=== PATIENT | male | born 1945 | race Caucasian/White ===

== ENCOUNTER → 2016-10-07 | Outpatient (CLI) | payer OTHER ==
[~2016-10-07] MED LIST: ACIPHEX20 MG PO; CELEBREX200 MG PO; CIALIS5 MG PO; CYCLOBENZAPRINE10 MG PO; FLONASE AL50 MCG/ACT; METHADONE HCL10 MG PO; NAPROXEN250 MG PO
--- NOTE | 2016-10-07 18:10 | DIAGNOSTIC IMAGING REPORT ---
PROCEDURE: MR BRAIN W/WO CONTRAST INDICATION: BILATERAL SENSORY HEARING LOSS TECHNIQUE: Noncontrast T1 sagittal and T2 coronal images. T2, FLAIR, gradient, and diffusion axial images of the brain. Thin-cut T1 axial of the IACs were obtained with 3D reformations. Following 17 mL of intravenous gadolinium (ProHance) thin-cut T1 axial, and FAT-SAT T1 axial and coronal images were obtained of the IACs followed by FAT-SAT T1 axial images of the brain. COMPARISON: None. FINDINGS: Mild cortical atrophy and a few scattered hyperintense lesions of the deep and subcortical white matter on FLAIR sequence. Normal ventricular system. Normal CP angles and internal auditory canals without evidence of a mass or abnormal enhancement. Normal posterior fossa. Minimal fluid in the left mastoid. Sinuses are clear. IMPRESSION: 1. Normal CP angles and internal auditory canals 2. Mild atrophy and white matter chronic ischemic changes 3. Minimal fluid in the left mastoid.
== END ==
LOC: MRI SRH 08:20
DX: H90.3 Sensorineural hearing loss, bilateral (principal); R42 Dizziness and giddiness; H93.13 Tinnitus, bilateral

== ENCOUNTER 2016-11-15 14:47 | Outpatient (CLI) | payer OTHER ==
--- NOTE | 2016-11-15 16:40 | DIAGNOSTIC IMAGING REPORT ---
PROCEDURE: MR LTD LOWER EXT JOINT-RIGHT INDICATION: OA RT KNEE (PEPPER AND NEPHEW PROTOCOL) Pepper and Nephew protocol for preop knee replacement. TECHNIQUE: Limited MRI of the knee was performed with high-resolution PD sagittal images. In addition, AP radiographs of the lower extremity were obtained with scanogram markers. Diagnostic interpretation is not provided. IMPRESSION: 1. Preoperative Pepper and Nephew protocol for knee prosthesis.
== END 2016-11-15 23:00 ==
LOC: MRI SRH 14:47
DX: M17.11 Unilateral primary osteoarthritis, right knee (principal)

== ENCOUNTER 2016-11-15 15:21 | Outpatient (CLI) | payer OTHER | END 2016-11-15 23:00 | LOC: LAB SRH 15:21 | DX: M17.11 Unilateral primary osteoarthritis, right knee (principal) | CPT/HCPCS: 91672; 92132 ==

== ENCOUNTER 2017-01-05 10:14 | Outpatient (CLI) | payer OTHER ==
--- NOTE | 2017-01-05 12:36 | DIAGNOSTIC IMAGING REPORT ---
PROCEDURE: US BILATERAL CAROTID DOPPLER INDICATION: TRANSIENT CEREBRAL ISCHEMIA TECHNIQUE: Color Doppler duplex imaging of the carotid and vertebral vessels. COMPARISON: None. FINDINGS: Right carotid system: No significant stenosis visualized. The waveforms are normal. There is intimal thickening. Left carotid system: No significant stenosis visualized. The waveforms are normal. There is intimal thickening. Vertebral System: Antegrade vertebral artery flow bilaterally. Right common carotid artery peak systolic velocity 79 cm/second. Right internal carotid artery peak systolic velocity 62 cm/second. Right external carotid artery peak systolic velocity 96 cm/second. Right dfzyscyh-go-npangu carotid artery ratio 0.78 Right vertebral artery peak systolic velocity 40 cm/second. Left common carotid artery peak systolic velocity 54 cm/second. Left internal carotid artery peak systolic velocity 55 cm/second. Left external carotid artery peak systolic velocity 97 cm/second. Left aujiddlg-cv-lhzznh carotid artery ratio 1.02 Left vertebral artery peak systolic velocity 43 cm/second. IMPRESSION: 1. No hemodynamically significant stenosis in either carotid system. 2. Antegrade vertebral artery flow bilaterally. Velocity criteria are extrapolated from diameter data as defined by the Society of Radiologists in Ultrasound Consensus Conference, Radiology 2003; 229; 340-346.
--- NOTE | 2017-01-05 12:36 | DIAGNOSTIC IMAGING REPORT ---
PROCEDURE: US BILATERAL CAROTID DOPPLER INDICATION: TRANSIENT CEREBRAL ISCHEMIA TECHNIQUE: Color Doppler duplex imaging of the carotid and vertebral vessels. COMPARISON: None. FINDINGS: Right carotid system: No significant stenosis visualized. The waveforms are normal. There is intimal thickening. Left carotid system: No significant stenosis visualized. The waveforms are normal. There is intimal thickening. Vertebral System: Antegrade vertebral artery flow bilaterally. Right common carotid artery peak systolic velocity 79 cm/second. Right internal carotid artery peak systolic velocity 62 cm/second. Right external carotid artery peak systolic velocity 96 cm/second. Right tufhrrnl-yj-wiilzs carotid artery ratio 0.78 Right vertebral artery peak systolic velocity 40 cm/second. Left common carotid artery peak systolic velocity 54 cm/second. Left internal carotid artery peak systolic velocity 55 cm/second. Left external carotid artery peak systolic velocity 97 cm/second. Left eeoesgtk-ke-hlrmjq carotid artery ratio 1.02 Left vertebral artery peak systolic velocity 43 cm/second. IMPRESSION: 1. No hemodynamically significant stenosis in either carotid system. 2. Antegrade vertebral artery flow bilaterally. Velocity criteria are extrapolated from diameter data as defined by the Society of Radiologists in Ultrasound Consensus Conference, Radiology 2003; 229; 340-346.
== END 2017-01-05 23:00 ==
LOC: US SRH 10:14
DX: G45.9 Transient cerebral ischemic attack, unspecified (principal)

== ENCOUNTER 2017-01-12 09:01 | Outpatient (CLI) | payer OTHER ==
--- NOTE | 2017-01-12 10:41 | DIAGNOSTIC IMAGING REPORT ---
PROCEDURE: XR CHEST 2 VIEW INDICATION: PRE OP TECHNIQUE: PA and lateral views. COMPARISON: None. FINDINGS: Lungs are clear. Heart and mediastinum are normal. Thorax is normal. IMPRESSION: 1. Negative chest.
== END 2017-01-12 23:00 ==
LOC: RT SRH 09:01
DX: Z01.810 Encounter for preprocedural cardiovascular examination (principal); Z01.812 Encounter for preprocedural laboratory examination; Z01.818 Encounter for other preprocedural examination; I44.4 Left anterior fascicular block; R94.31 Abnormal electrocardiogram [ECG] [EKG]
CPT/HCPCS: 90001; 90004; 90074; 90100; 90155; 91004; 91286; 94001; 94060; 95059; 95150

== ENCOUNTER 2017-01-17 07:30 | Inpatient (IN) | payer OTHER ==
[~2017-01-17] VITALS: Ht 170.2 cm; Wt 82.1 kg
[2017-01-24] VITALS (9 sets, daily range): BP systolic 118–127; BP diastolic 66–79
--- NOTE | 2017-01-24 06:58 | NUR ---
PREOP INSTRUCTIONS GIVEN TO PATIENT. QUESTIONS ANSWERED. PATIENT VERBALIZES UNDERSTANDING. CONSENT CONFIRMED. EXTREMITY MARKED. KP WOLFE AND STONEY ON. BS 129. PATIENT RESTING COMFORTABLY. KB
--- NOTE | 2017-01-24 09:49 | Postoperative Progress Note ---
Postop Progress Note Preoperate Diagnosis: Right knee arthritis Postoperative Diagnosis: Same Surgeon: Mario Pena MD Anesthesia: General ETT Findings: Arthritis right knee Procedure: Right TKA Complications? No Condition: Stable EBL: 500cc Fluid(s): 800cc Blood Administered: 0 Specimen(s) removed? Yes Specimen removed/disposition: Bone and tissue right knee Grafts or Implants? Yes Graft/Implant type: Right TKA . (See nursing notes for details of grafts/implants)
--- NOTE | 2017-01-24 10:09 | NUR ---
REC'D FROM OR; SPONT RESP. SUPINE WITH ICE TO RT KNEE. CMS=GOOD; DP&PT=STRONG, PALP.
--- NOTE | 2017-01-24 10:29 | NUR ---
SURGEON HERE TO SPEAK TO PT RE FINDINGS. XRAYS TAKEN; TOLERATED WELL. TALKATIVE
--- NOTE | 2017-01-24 11:00 | OPERATIVE REPORT ---
DATE OF SURGERY: 01/24/2017 SURGEON: MARGOT REYES MD MODEL MAKER FIBERGLASS: STEPHANIE SPENCER PA-C PREOPERATIVE DIAGNOSIS: 1. Arthritis of the right knee POSTOPERATIVE DIAGNOSIS: 1. Arthritis of the right knee. PROCEDURE PERFORMED: 1. The operation proposed was right knee replacement, and the operation performed was the same ESTIMATED BLOOD LOSS: 500 mL. COMPLICATIONS: None. PATHOLOGY SPECIMEN: Bone and tissue removed from the right knee, including the meniscus, anterior cruciate ligament, the infrapatellar fat pad, and the cut surfaces of the femur, tibia, and patella. SURGICAL FINDINGS: Right knee arthritis. SURGICAL TECHNIQUE: The patient was taken to the operating room, where he was given a general anesthetic. A tourniquet applied to the right thigh. The leg was prepped and draped in the usual sterile fashion. A longitudinal incision was made directly anteriorly. Standard medial parapatellar approach to the knee was performed, and the patient had excision of the anterior fat pad and a major portion of the anterior cruciate ligament, which was later completely resected. We exposed the distal femur enough to place the supplied guide block from the Pepper and Nephew set. This was pinned in place, and the distal femoral cut was made. The #6 cutting block was then placed on the distal femur and secured in place with 2 pins. Then the anterior and posterior and chamfer cuts were made, and a small cut for the femoral sulcus as well. The patient had a subluxation of the tibia forward, and we were able to resect the remaining portion of the anterior cruciate ligament and the menisci, exposed the proximal tibia. Then the tibial cutting block was placed into position, pinned in place, and the guide lobo used to ensure that we really were aligned properly. Then the proximal tibial cut was made without difficulty, and the proximal tibial segment was removed. The patient had the tibial base plate secured in place with 2 pins, and then drill hole for the stem and the cutout for the fins was made with the special drill and punch from the Pepper & Nephew set. The femoral trial was placed into position. The #9 insert was placed on the tibia and then moved through the range of motion. I could see the patella tracked perfectly, and the patient was going to have good stability in full extension, full flexion easily possible. There was a little bit of laxity with the 9 insert, and we later went to an actual 10 insert when we finished, but it was possible to see that everything was going to be well. So we cut the patella, resecting 9-10 mm of bone off the articular surface. Using a 35 mm guide, positioned it superiorly and slightly medially, and then made the drill holes and undercut them with a small curette. The leg was then exsanguinated, the tourniquet inflated to 350 mmHg. The knee was bent, and the cut surfaces of the femur and tibia were cleansed with a pulse lavage unit and dried thoroughly. Methylmethacrylate cement was vacuum mixed, injected down the canal of the tibia, and on the cut surface of the tibia, placed on the backside of the tibial component, and it was seated down into position. The extruded cement was removed from around the margins. More cement was placed on the backside of the femoral component and on the femoral cut surface. It was seated in place. Again, the extruded cement was removed from around the margins. A 9 mm trial insert was placed into position. The knee was put in extension and held there until the cement hardened, but before we did, we cleaned the patellar cut surface and dried it thoroughly. We then placed methylmethacrylate cement in the holes for the lugs on the patellar component and on the backside of the patellar component, and on the cut surface of the patella. We then seated the patellar component in place, clamped it in place with a clamp, and removed the extruded cement from around the margins and waited for the cement to harden. Once it did, we could see again there was a little bit of laxity, varus and valgus with the 9 mm insert. We went with a 10 mm trial insert, and with that he had excellent stability, full range of motion. The patellar tracking was perfect, with no tendency to sublux or dislocate. We got the actual 10 mm insert, seated it down on the tibial base plate, and then closed using running #2 nonabsorbable braided suture for the parapatellar retinaculum, and then interrupted dlmoaa-ks-nmmpf sutures along the medial margin of the patella to reinforce the repair. We then deflated the tourniquet and further closed using 2-0 Vicryl running suture for the subcutaneous, and 3-0 Vicryl running suture for the subcuticular skin closure. We dressed with Xeroform and ABDs, wrapped with sterile Webril, Emir bandage, and awakened and taken to the recovery room. He did get an injection of 40 mL of 0.5 % Marcaine around the knee prior to the closure. He was in stable condition and was comfortable when he arrived in the emergency room.
--- NOTE | 2017-01-24 11:01 | DIAGNOSTIC IMAGING REPORT ---
PROCEDURE: XR KNEE 1 OR 2 VIEWS - RIGHT INDICATION: post op TKA TECHNIQUE: Two views of the right knee. COMPARISON: None. FINDINGS: Total knee arthroplasty components are in position. The joint is in normal alignment. No unexpected fractures or hardware failure. There is expected intra-articular fluid, gas, and subcutaneous postoperative changes. IMPRESSION: 1. Expected postoperative appearance of right total knee arthroplasty.
--- NOTE | 2017-01-24 15:29 | NUR ---
I discussed with the patient their current medications, possible side effects, and answered questions.
--- NOTE | 2017-01-24 15:44 | NUR ---
PATIENT SITTING UP IN THE BED ALERT AND ORIENTED. DENIES ANY NUMBNESS OR TINGLING TO THE RIGHT LOWER EXTREMITY. PATIENT DENIES ANY CHEST PAIN, DENIES ANY SOB, ON THE CO2 MACHINE, CO2 AT 31, SATURATION AT 94 PERCENT ON ROOM AIR. STRONG PULSES BILAT LE. KP HOSE ON, SCDS ON, RLE WRAPPED IN AN NAYELI BANDAGE, CLEAN DRY AND INTACT.
[2017-01-25] VITALS (8 sets, daily range): BP systolic 120–146; BP diastolic 59–77
--- NOTE | 2017-01-25 00:46 | NUR ---
PATIENT ON ROOM AIR STILL, SATURATIONS IN THE HIGH 90'S WITH CO2 IN THE MID 30'S TO 40. MINIMAL PAIN, RLE ELEVATED AND ICED. GOOD CAP REFILL, SENSATION AT BASELINE. PATIENT HAS NO COMPLAINTS AT THIS TIME. VOIDING FREQUENTLY. DENIES NAUSEA OR VOMITTING, SOB OR CP. TOLERATING PO WELL. CALL LIGHT WITHIN REACH.
--- NOTE | 2017-01-25 07:04 | Progress Note ---
Subjective General VSS WBC 12.4 Hgb 11.4 Calcium 8.2 NMV unchanged in RLE. 2+ DP pulse. Toes warm and pink. No C/O no CP, SOB, N,V,D. PT today. He was hypotensive last pm, but his BP is OK and his HR likewise this am.
--- NOTE | 2017-01-25 10:07 | NUR ---
PER JOSE PHARMACIST, CANCEL CIPRO ORDER AND INSTRUCT PATIENT TO CONTINUE HER PREVIOUS RX OF CLINDAMYCIN QID, PHARMACIST DISCUSSED THIS WITH PATIENT, PATIENT TO CONTINUE TAKING THIS UNTIL FOLLOW UP WITH DR. JAIN FOR FURTHER INSTRUCTIONS. PHARMACIST ALSO EDUCATED PATIENT ON TAKING WITH PROBIOTIC.
--- NOTE | 2017-01-25 18:54 | NUR ---
I discussed with the patient their current medications, possible side effects, and answered questions.
--- NOTE | 2017-01-25 20:04 | NUR ---
WAS TOLD PT HAD HOME MEDICATIONS IN HIS ROOM. MEDICATIONS WERE REMOVED AND PLACED AT NURSES STATION. LABOR REPRESENTATIVE HAS MEDICATIONS NOW. PT IN NO DISTRESS, HAS BEEN UP WALKING AROUND, PT HAS HAD NO OTHER COMPLAINTS. PT IS IN A HAPPY MOOD, AND RESTING IN HER ROOM NOW.
--- NOTE | 2017-01-25 22:56 | NUR ---
Patient sat out during daytime and has been using the IS now and again. He has mindi having PRN pain meds and was also given a fresh ice pack. Dressing on R knee appers dry and intact.
[2017-01-26 03:02] VITALS: BP 133/85
[2017-01-26 07:06] VITALS: BP 118/83
--- NOTE | 2017-01-26 07:39 | Progress Note ---
Subjective General He had quite a bit of pain last night. but is much better this am. No other c/o. VSS Afeb He is doing well and will continue with PT
[2017-01-26] MEDS ORDERED: ACIPHEX20 MG PO (08:50)
[2017-01-26 10:33] VITALS: BP 118/79
--- NOTE | 2017-01-26 10:49 | Provider's Discharge Care Plan ---
Problem, Goal, Plan Problem List 1. Primary osteoarthritis of knees, bilateral
--- NOTE | 2017-01-26 10:49 | Provider's Discharge Care Plan ---
Problem, Goal, Plan Problem List 1. Primary osteoarthritis of knees, bilateral
--- NOTE | 2017-01-26 11:57 | NUR ---
pt completed STS using FWW SBA. Ambulated to w/c. pushed to stairs. pt negotiated 10steps SBA using both railings. pt ambulated 100ft back to room SBA using a FWW. pt is recommended to d/c home once medically cleared.
--- NOTE | 2017-01-26 14:40 | NUR ---
DSICHARGE INSTRUCS., PRESC., GIVEN TO PT. EMPHASIZING ON AMBULATION, ASPIRIN PER DR REYES'S INSTRUCS., BID. PT UNDERSTOOD. QUESTIONS AND CONCERNS ANSWERED. PT IS WAITING FOR HIS GRANDSON.
--- NOTE | 2017-01-26 15:00 | NUR ---
PT WENT HOME WITH GRANDSON. ASSISTED BY MS ROWLAND TO THE LOBBY VIA WHEELCHAIR.
== END 2017-01-26 14:40 | disposition home or self-care (01) | DRG 470 ==
LOC: U SRH 07:30 → SCU SRH 01-24 06:19 → U SRH 01-24 07:30 → ACUTE2 SRH 01-24 10:36
PROVIDERS: ADMIT Orthopaedic Surgery
PROC: 0SRC0J9 Replacement of Right Knee Joint with Synthetic Substitute, Cemented, Open Approach (ICD-10-PCS; principal; 2017-01-24 07:30)
DX: M17.11 Unilateral primary osteoarthritis, right knee (principal); R03.1 Nonspecific low blood-pressure reading; J44.9 Chronic obstructive pulmonary disease, unspecified; J84.10 Pulmonary fibrosis, unspecified; K21.9 Gastro-esophageal reflux disease without esophagitis; M48.06 Spinal stenosis, lumbar region; N40.0 Benign prostatic hyperplasia without lower urinary tract symptoms; Z86.73 Personal history of transient ischemic attack (TIA), and cerebral infarction without residual deficits; Z79.891 Long term (current) use of opiate analgesic; Z87.891 Personal history of nicotine dependence

== ENCOUNTER 2017-02-05 13:31 | Inpatient (IN) | payer OTHER ==
[~2017-02-05] VITALS: Ht 170.2 cm; Wt 83.0 kg
--- NOTE | 2017-02-05 13:48 | ED CLINICAL REPORT ---
Clinical Report - Physicians/Mid Levels [facility] [address] [place] [address] 02/05/2017 13:32 [id number] Time Seen: 13:37. Arrived- By private vehicle. Historian- patient. HISTORY OF PRESENT ILLNESS Chief Complaint: LOWER EXTREMITY PAIN and SWELLING and ; ;(discharge from wound). Modifying factors- worsened by standing, walking and movement. Relieved by remaining still. Severity is described as being moderate. The quality is noted to be "pain" and similar to prior episodes. No radiation. This started today and is still present. It was gradual in onset and has been waxing/waning. Symptoms located in the area of the right knee. The patient has had redness and swelling. He has had difficulty walking. No bladder dysfunction, bowel dysfunction, sensory loss or motor loss. Patient notes an injury. Mechanism of injury- (post operative right knee replacement). Similar symptoms previously: Recent medical care: The patient was seen recently at this facility. Diagnosis: (had right knee replacement this week). REVIEW OF SYSTEMS No cough, chest pain, fever, headache or blurred vision. No sore throat, abdominal pain, vomiting, diarrhea or black stools. No bloody stools. He has had neck pain. It has been similar to previous episodes. He has had back pain. It has been similar to previous symptoms. PAST HISTORY ( Past medical history: Low back pain Chronic right knee pain / DJD Chronic neck pain with cervical radiculitis SURGERIES: Right knee replacement Lumbar spine surgery Shoulder repair Hernia repair Tonsillectomy). No history of heart disease. SOCIAL HISTORY Former smoker, end date 1989. Is a local resident. ADDITIONAL NOTES The nursing notes have been reviewed. PHYSICAL EXAM Vital Signs: 02/05/2017 13:39 BP: 135/72. HR: 103. RR: 20. O2 saturation: 95%. Temp: 98.3 F. Pain level now: 3/10. Appearance: Alert. Oriented X3. Patient in mild distress. Eyes: Eyes normal inspection. No pale conjunctivae or scleral icterus. ENT: Pharynx normal. Neck: Normal inspection. Neck supple. CVS: Tachycardia. Heart sounds normal. Respiratory: No respiratory distress. Breath sounds normal. Abdomen: Soft and nontender. Back: No tenderness. Skin: Skin warm and dry. (right knee erythema). Extremities: Left knee: moderate erythema, tenderness and swelling. Limited ROM secondary to pain. Joint effusion present. Neurovascular intact distally. (surgical wound healing with mild d/c). No abrasion, ecchymosis or deformity. Extremities otherwise negative. Neuro: Oriented X 3. No motor deficit. No sensory deficit. LABS, X-RAYS, AND EKG Laboratory Tests: UA-Culture if indicated: (GRUPO: 02/05/2017 14:30) ( MsgRcvd 02/05/2017 15:38) Final results Test Result Flag Units (Reference) URINE COLOR YELLOW URINE APPEARANCE CLEAR URINE GLUCOSE NEGATIVE (NEGATIVE) URINE BILIRUBIN NEGATIVE (NEGATIVE) URINE KETONE NEGATIVE (NEGATIVE) URINE SPECIFIC GRAVITY 1.010 (1.010-1.030) URINE PH 6.5 (5.0-8.0) URINE PROTEIN NEGATIVE (NEGATIVE) URINE UROBILINOGEN 2.0 EU/dL (0.2-1.0) The urobilinogen reagent area may react with interferingsubstances known to react with Omer's reagent such asp-aminosalicylic acid and sulfonamides. Atypical colorreactions may be obtained in the presence of highconcentrations of p-aminobenzoic acid. The absence ofurobilinogen cannot be determined with this test. URINE NITRITE NEGATIVE (NEGATIVE) URINE BLOOD NEGATIVE (NEGATIVE) URINE LEUK ESTERASE NEGATIVE (NEGATIVE) URINE RBC NONE SEEN rbc/hpf (0-1) URINE WBC NONE SEEN wbc/hpf (0-1) URINE EPITHELIAL CELLS NONE SEEN EPI/hpf (0-5) URINE BACTERIA TRACE (<1+) (NONE SEEN) URINE COMMENT CULT NOT INDICATED URINE CULTURES ARE SET-UP BASED ON THE FOLLOWING CRITERIA:POSITIVE NITRITEPOSITIVE LEUKOCYTE ESTERASEGREATER THAN 10 WHITE BLOOD CELLSMODERATE (2+) OR GREATER BACTERIA CBC w Diff: (GRUPO: 02/05/2017 14:00) ( MsgRcvd 02/05/2017 14:38) Final results Test Result Flag Units (Reference) WHITE BLOOD COUNT 9.8 K/uL (4.5-11.5) RED BLOOD COUNT 3.69 L M/uL (4.50-5.90) HEMOGLOBIN 10.5 L gm/dL (13.5-17.5) HEMATOCRIT 31.7 L % (41.0-53.0) MEAN CELL VOLUME 86 fL (80-100) MEAN CORPUSCULAR HGB 28 pg (26-34) MEAN CORPUSCULAR HGB CONC 33 g/dL (31-37) RED CELL DISTRIBUTION WIDTH 13.9 % (11.6-14.8) PLATELET COUNT 367 K/uL (150-400) NEUTROPHIL % 82.6 H % (50-75) LYMPH % 11.5 L % (25-40) MONO % 4.8 % (3-14) EOSINOPHIL % 1.1 % (0-4) BASOPHIL % 0 % (0-2) SED RATE WESTERGREN 38 H mm/hr (0-20) PT with INR: (GRUPO: 02/05/2017 14:00) ( [facility] 02/05/2017 14:37) Final results Test Result Flag Units (Reference) INR 1.0 (0.8-1.2) Low Intensity Therapy: INR 1.5-2.0 PT range 18.5-23.1Mod.Intensity Therapy: INR 2.0-3.0 PT range 23.1-31.5High Intensity Therapy: INR 2.5-3.5 PT range 27.4-35.5High Intensity Therapy 2: INR 3.0-4.0 PT range 31.5-39.3 APTT 34 SECONDS (24-34) CMP: (GRUPO: 02/05/2017 14:00) ( [facility] 02/05/2017 14:33) Final results Test Result Flag Units (Reference) GLUCOSE 115 H mg/dL (70-110) BUN 19 H mg/dL (7-18) CREATININE 0.8 mg/dL (0.6-1.3) Estimated GFR >60 mL/min Estimated GFR- >60 mL/min Note: Persistent reduction over 3 months in eGFR<60 mL/min/1.73 m2 defines CKD. Patients with eGFR values>=60 mL/min/1.73 m2 may also have CKD if evidence ofpersistent proteinuria. Additional information may be foundat www.kidney.org. SODIUM 138 mmol/L (136-145) POTASSIUM 4.3 mmol/L (3.5-5.1) CHLORIDE 102 mmol/L (98-107) CARBON DIOXIDE 29 mmol/L (21-32) CALCIUM 8.2 L mg/dL (8.5-10.1) TOTAL PROTEIN 6.9 g/dL (6.4-8.2) ALBUMIN 3.1 L g/dL (3.3-5.0) BILIRUBIN, TOTAL 0.5 mg/dL (0.0-1.0) ALKALINE PHOSPHATASE 71 U/L (46-116) AST (SGOT) 22 U/L (15-37) ALT (SGPT) 24 U/L (12-78) MAGNESIUM 2.3 mg/dL (1.8-2.4) . Microbiology: Joint fluid culture ordered. Pulse Oximetry: 02/05/2017 13:39 O2 saturation: 95%. (FIO2 - room air). Interpretation: normal. PROGRESS AND PROCEDURES Course of Care: Pt with post op right total knee infection and will go to the OR now for washout and antibiotics. Dr Pena performed left knee arthrocentesis. Discussed case with patient's primary care provider, (Becky). Reviewed test results. Agreed upon treatment plan. Health care provider will see patient in ED. Patient/family counseled. Old inpatient records reviewed. Transition orders written. Disposition: Admitted to Acute Care. Condition: stable and improved. CLINICAL IMPRESSION Cellulitis of the right knee. Moderate acute anemia. (Electronically signed by Oswaldo Reese DO 02/05/2017 16:23)
--- NOTE | 2017-02-05 13:48 | ED ORDER SUMMARY ---
..... Patient: BETH CASPER OrderSheet [facility] VisitID: [id number] [place] [address] 71y, M Registration Date/Time: 02/05/2017 ORDER SHEET Weight: 80.2 kg (stated) Allergies: No Known Drug Allergy GENERAL ORDERS: Culture, Wound Surface (Knee) (wound ) Urgent (13:47 [facility]/05/2017 [facility] (Ack 13:52 LNations ER Tech1) (Cancelled: Other13:53 [facility]) CBC w Diff Urgent (13:47 02/05/2017 [facility] (Ack 13:52 LNations ER Tech1) (14:28 DDean R.N.) CMP Urgent (13:47 02/05/2017 [facility] DO) (Ack 13:52 LNations ER Tech1) (14:28 DDean R.N.) ESR Urgent (13:47 [facility]2017 [facility] (Ack 13:52 LNations ER Tech1) (14:28 DDean R.N.) UA-Culture if indicated Urgent (13:47 [facility]/05/2017 [facility] (Ack 13:52 LNations ER Tech1) (14:51 DDean R.N.) MEDICATION ORDERS: IV FLUIDS: IV NS : initial bolus 500 mL (1000 mL/hr), then 250 mL/hr for X2 (NOW) (13:47 02/05/2017 [facility] DO) (Ack 13:49 DDean R.N.) (14:28 DDean R.N.) Vancomycin IV 2 gm/500 mL (NOW) (13:48 02/05/2017 [facility] DO) (Ack 13:49 DDean R.N.) (Cancelled: Other13:53 [facility]) ORDER SHEET NOTES: [Electronically signed by Lise Phillips R.N. (16:22 02/05/2017)] [Electronically signed by Oswaldo Reese DO (16:23 02/05/2017)] [Electronically locked/signed by Lise Phillips R.N. (16:22 02/05/2017)Ludmila
--- NOTE | 2017-02-05 13:48 | ED NURSING NOTES ---
Clinical Report - Nurses [facility] [address] [place] [address] 02/05/2017 13:32 Patient: BETH CASPER TRIAGE Triage time 1340. Acuity: LEVEL 4. Chief Complaint: RIGHT LOWER EXTREMITY PAIN and SWELLING. --13:44 Lise Phillips R.N. 13:39 02/05/17. BP: 135/72. HR: 103. RR: 20. O2 saturation: 95% on room air. Temp: 98.3 F. Pain level now: 10/08. --13:44 Lise Phillips R.N. Weight: 80.2 kg stated. Height/Length: 67 inches Per Patient. BMI: 27.7. --13:43 Lise Phillips R.N. Medications Methadone 20mg BID for back pain . --13:45 Lise Phillips R.N. Aciphex Oral 5mg, 2x a day. --13:45 Lise Phillips R.N. Cialis Oral (Tablet 10 mg) 1 tablet, daily. --13:46 Lise Phillips R.N. Multivitamin Oral 1 tab daily . --13:47 Lise Phillips R.N. ASA 325 BID . --13:48 Lise Phillips R.N. Allergies No Known Drug Allergy. --13:45 Lise Phillips R.N. History Arrived by private vehicle. Historian: patient. Accompanied by family. Primary physician (ximena). ( Pt in to see orthopedic doctor 2 days pos knee replacement surgery. denies pain, states Dr wanted him to come in for recheck). PAST MEDICAL HX: ( COPD). SURGERY HX: Back surgery. Fusion at L3-L4 and L4-L5. Inguinal hernia repair. Right knee surgery and and left shoulder surgery. Tonsillectomy. SOCIAL HX: Former smoker (quit 27 yearsago, was a 1ppd for 25 years). --13:44 Lise Phillips R.N. Interventions ID band on patient. To treatment room. --13:44 Lise Phillips R.N. PHYSICAL ASSESSMENT 13:40. Ambulatory to room. GENERAL / NEURO / PSYCH: Oriented X 4. Alert. Appears in no acute distress. EXTREMITIES: Limited ROM present. Right knee: tenderness. SKIN: Skin is warm. ( healing wound with edges approximated noted). --13:49 Lise Phillips R.N. NURSING PROGRESS NOTES 13:40. Patient gowned. Reassurance given. Patient identifiers checked. Call light placed in reach. Side rails up. Bed placed in lowest position. Patient ready for evaluation- chart flagged and notification provided. --13:48 Lise Phillips R.N. ( h/p forms on chart.). --13:54 Mayuri Lee, ALEXIS [facility] 13:58 02/05/2017 Site #1 started via IV in the left forearm with an 20g angiocath, with aseptic technique and good blood return; one attempt. Blood drawn: rainbow set and cultures x1. Labeled in the presence of the patient and sent to the lab. Saline lock flushed with 10 mL saline. --14:23 Lise Phillips R.N. 13:45. Wound cleansed with water and Hibiclens (by orthopedic doctor with Hibiclens and water prior to needle aspiration to knee joint. very little returned. aerobic and anaerobic cultures obtained and sent to lab). --14:26 Lise Phillips R.N. 14:05. Applied clean bulky dressing. Secured with tape and kerlix (by Dr Pena). --14:27 Lise Phillips R.N. 14:20 02/05/2017 Started bag #1 1000 mL IV Fluids IV NS (Saline); bolus of 500 mL over 30 minute(s) then at 250 mL/hr over 2 hour(s) via site #1 via IV pump. IV patency established. IV site checked: no pain, redness, or swelling. IV flushed thoroughly pre- and post-medication administration. --14:28 Lise Phillips R.N. 14:20. ( pillow placed on pillows , pt given urinal). --14:28 Lise Phillips R.N. 14:35. Patient ID band checked for patient name and birthdate: patient confirmed. Clean catch urine collected with return of yellow-colored clear urine; sample sent to lab for urinalysis and culture. Specimen labeled in the presence of the patient. --14:50 Lise Phillips R.N. ( Overview faxed to 2nd floor.). --15:03 Mayuri Lee ER Tech1 15:18 02/05/2017 IV Fluids IV NS via IV site #1 Rate Changed: bag #1 decreased to 250 mL/hr via IV pump. Confirmed 5 Rights. --15:18 Nettie Haywood R.N. 15:40 02/05/17. BP: 119/70. HR: 77. RR: 18. O2 saturation: 95% on room air. Temp: deferred. Pain level now: 0/10. Additional comments: in no distress, working on phone . --15:45 Lise Phillips R.N. 15:53 02/05/2017 Site #[address] upon admission; patent. Converted to saline lock. --15:53 Lise Phillips R.N. 15:53 02/05/2017 IV Fluids IV NS Discontinued: STOPPED upon admission. Total amount infused: 650 mL. IV patency established. IV site checked: no pain, redness, or swelling. IV flushed thoroughly. --15:53 Lise Phillips R.N. DISPOSITION / DISCHARGE 15:52 02/05/17. Condition at departure: unchanged and stable. Admitted to Acute Care. Transported via stretcher by [employer]. Report was given. (Roseline ACOSTA , staff nurse). --15:52 Lise Phillips R.N. 15:49 02/05/17. BP: 119/70. HR: 77. RR: 18. O2 saturation: 95%. Temp: deferred. Pain level now: 0/10. --15:52 Lise Phillips R.N. Departure time: 1555. --16:21 Lise Phillips R.N. Locked/Released at 02/05/2017 16:22 by Lise Phillips R.N.
--- NOTE | 2017-02-05 13:48 | ED ORDER SUMMARY ---
..... Patient: BETH CASPER OrderSheet [facility] VisitID: [id number] [place] [address] 71y, M Registration Date/Time: 02/05/2017 ORDER SHEET Weight: 80.2 kg (stated) Allergies: No Known Drug Allergy GENERAL ORDERS: Culture, Wound Surface (Knee) (wound ) [facility]gent (13:47 [facility] (Ack 13:52 LNations ER Tech1) (Cancelled: Other13:53 [facility]) CBC w Diff Urgent (13:47 02/05/2017 [facility] (Ack 13:52 LNations ER Tech1) (14:28 DDean R.N.) CMP Urgent (13:47 02/05/2017 [facility]) (Ack 13:52 LNations ER Tech1) (14:28 DDean R.N.) ESR Urgent (13:47 [facility]05[facility]2017 [facility] (Ack 13:52 LNations ER Tech1) (14:28 DDean R.N.) UA-Culture if indicated Urgent (13:47 02/05/2017 [facility] (Ack 13:52 LNations ER Tech1) (14:51 DDean R.N.) MEDICATION ORDERS: IV FLUIDS: IV NS : initial bolus 500 mL (1000 mL/hr), then 250 mL/hr for X2 (NOW) (13:47 02/05/2017 [facility] DO) (Ack 13:49 DDean R.N.) (14:28 DDean R.N.) Vancomycin IV 2 gm/500 mL (NOW) (13:48 02/05/2017 [facility] DO) (Ack 13:49 DDean R.N.) (Cancelled: Other13:53 [facility]) ORDER SHEET NOTES: [Electronically signed by Lise Phillips R.N. (16:22 02/05/2017)] [Electronically signed by Oswaldo Reese DO (16:23 02/05/2017)] [Electronically locked/signed by Lise Phillips R.N. (16:22 02/05/2017)Ludmila
--- NOTE | 2017-02-05 16:24 | ED MED RECONCILIATION SUMMARY ---
Patient: BETH CASPER Medication Reconciliation Report [facility] VisitID: [id number] [address] [place] [address] 71y, M Registration Date/Time: 02/05/2017 Weight: 80.2 kg Height/Length: 67 in. BMI: 27.7 ALLERGIES: No Known Drug Allergy The patient's Home Medications are listed below: THE FOLLOWING MEDICATIONS NEED TO BE RECONCILED: Aciphex Oral 5mg, 2x a day ASA 325 BID Cialis Oral (10 mg) 1 tablet, daily Methadone 20mg BID for back pain Multivitamin Oral 1 tab daily The source(s) of the original Home Medication information: Not obtained. The following Medications were given to the patient in the Emergency Department: IV NS IV Fluids bolus 500 mL over 30 minute(s), then 250 mL/hr, administered: 02/05/2017 2:20:00 PM The following Medications were prescribed to the patient: None.
--- NOTE | 2017-02-05 16:24 | ED MAR SUMMARY ---
..... Medication Administration Record [facility] [address] [place] [address] Patient: BETH CASPER Visit ID: [id number] 71y, M Weight: 80.2 kg Height/Length: 67 in BMI: 27.7 ALLERGIES: No Known Drug Allergy Start 14:20 02/05/2017 Lise Phillips R.N., Stop 15:53 02/05/2017 Lise Phillips R.N. Medication Administered: IV NS (SALINE), Dose: IV Fluids over 2 hour(s), Rate: 250 mL/hr, Bolus: 500 mL over 30 minute(s), Dispensed: 1000 mL bag, Site: #1 left forearm. Medication Ordered: IV NS : initial bolus 500 mL (1000 mL/hr), then 250 mL/hr for X2 (NOW).
--- NOTE | 2017-02-05 16:24 | ED MED RECONCILIATION SUMMARY ---
Patient: BETH CASPER Medication Reconciliation Report [facility] VisitID: [id number] [address] [place] [address] 71y, M Registration Date/Time: 02/05/2017 Weight: 80.2 kg Height/Length: 67 in. BMI: 27.7 ALLERGIES: No Known Drug Allergy The patient's Home Medications are listed below: THE FOLLOWING MEDICATIONS NEED TO BE RECONCILED: Aciphex Oral 5mg, 2x a day ASA 325 BID Cialis Oral (10 mg) 1 tablet, daily Methadone 20mg BID for back pain Multivitamin Oral 1 tab daily The source(s) of the original Home Medication information: Not obtained. The following Medications were given to the patient in the Emergency Department: IV NS IV Fluids bolus 500 mL over 30 minute(s), then 250 mL/hr, administered: 02/05/2017 2:20:00 PM The following Medications were prescribed to the patient: None.
--- NOTE | 2017-02-05 16:24 | ED DISCHARGE INSTRUCTIONS ---
Patient: BETH CASPER General Instructions [facility] VisitID: [id number] [address] [place] [address] 71y, M Registration Date/Time: 02/05/2017 Cellulitis of the right knee. Moderate acute anemia. (Electronically signed by Oswaldo Reese DO 02/05/2017 16:23)
--- NOTE | 2017-02-05 16:24 | ED MAR SUMMARY ---
..... Medication Administration Record [facility] [address] [place] [address] Patient: BETH CASPER Visit ID: [id number] 71y, M Weight: 80.2 kg Height/Length: 67 in BMI: 27.7 ALLERGIES: No Known Drug Allergy Start 14:20 02/05/2017 Lise Phillips R.N., Stop 15:53 02/05/2017 Lise Phillips R.N. Medication Administered: IV NS (SALINE), Dose: IV Fluids over 2 hour(s), Rate: 250 mL/hr, Bolus: 500 mL over 30 minute(s), Dispensed: 1000 mL bag, Site: #1 left forearm. Medication Ordered: IV NS : initial bolus 500 mL (1000 mL/hr), then 250 mL/hr for X2 (NOW).
--- NOTE | 2017-02-05 16:24 | ED DISCHARGE INSTRUCTIONS ---
Patient: BETH CASPER General Instructions [facility] VisitID: [id number] [address] [place] [address] 71y, M Registration Date/Time: 02/05/2017 Cellulitis of the right knee. Moderate acute anemia. (Electronically signed by Oswaldo Reese DO 02/05/2017 16:23)
[2017-02-05 16:31] VITALS: BP 121/67
[2017-02-05 22:10] VITALS: BP 120/60
[2017-02-06] VITALS (10 sets, daily range): BP systolic 102–131; BP diastolic 53–77
--- NOTE | 2017-02-06 09:25 | Progress Note ---
Subjective General VSS Afebrile WBC 8.2 ESR 18 I aspirated the knee in the ER last night using sterile technique and just got < 1cc of bloody fluid that was placed in culture tubes, but the lab is reporting they have not seen them. The knee is better today with less edema and erythema. There is a little bit of bloody drainage on the bandages, but none from the wound at present. There is only very mild warmth. Plan for I/D today and continue IV antibiotics.
--- NOTE | 2017-02-06 12:45 | Postoperative Progress Note ---
Postop Progress Note Preoperate Diagnosis: Persistent drainage, possible infection right knee. Postoperative Diagnosis: Same Surgeon: Mario Pena MD Anesthesia: General ETT Findings: SQ hematoma right knee. Procedure: I/D right knee wound Complications? No Condition: Stable EBL: 5cc Blood Administered: 0 Specimen(s) removed? Yes Specimen removed/disposition: Fluid for c/s, Gram stain, and cell count Grafts or Implants? No . (See nursing notes for details of grafts/implants)
[2017-02-07 03:07] VITALS: BP 110/56
[2017-02-07 06:43] VITALS: BP 103/58
--- NOTE | 2017-02-07 08:13 | Progress Note ---
Subjective General VSS Afeb WBC normal Hgb 9.1 ESR 33 Gram stain with moderate WBCs and no organisms. No C/S report yet. Wound is clean with only 1 drop of bloody drainage. Patient reports it feels better already. Continue IV antibiotics.
[2017-02-07 10:23] VITALS: BP 125/77
[2017-02-07 14:42] VITALS: BP 115/69
[2017-02-07 18:05] VITALS: BP 127/63
[2017-02-07 22:21] VITALS: BP 121/59
[2017-02-08 02:26] VITALS: BP 120/75
[2017-02-08 06:25] VITALS: BP 107/55
--- NOTE | 2017-02-08 07:36 | Progress Note ---
Subjective General VSS Afebrile ESR 19 WBC 7.7 C/S all -. Wound is dry and clean with no drainage today. Pain is less. DC home.
--- NOTE | 2017-02-08 07:36 | Progress Note ---
Subjective General VSS Afebrile ESR 19 WBC 7.7 C/S all -. Wound is dry and clean with no drainage today. Pain is less. DC home.
--- NOTE | 2017-02-08 07:38 | Provider's Discharge Care Plan ---
Problem, Goal, Plan Problem List 1. Primary osteoarthritis of knees, bilateral
--- NOTE | 2017-02-08 07:38 | Provider's Discharge Care Plan ---
Problem, Goal, Plan Problem List 1. Primary osteoarthritis of knees, bilateral
== END 2017-02-08 14:45 | disposition home health service (06) | DRG 921 ==
LOC: ED SRH 13:31 → TRANS SRH 14:37 → ACUTE2 SRH 16:11
PROVIDERS: Orthopaedic Surgery; ADMIT Emergency Medicine
PROC: 0S9C3ZX Drainage of Right Knee Joint, Percutaneous Approach, Diagnostic (ICD-10-PCS; 2017-02-05)
PROC: 0JCN0ZZ Extirpation of Matter from Right Lower Leg Subcutaneous Tissue and Fascia, Open Approach (ICD-10-PCS; principal; 2017-02-06 11:00)
PROC: 0S9C0ZX Drainage of Right Knee Joint, Open Approach, Diagnostic (ICD-10-PCS; principal; 2017-02-06 11:00)
DX: L76.32 Postprocedural hematoma of skin and subcutaneous tissue following other procedure (principal); Z96.651 Presence of right artificial knee joint; D64.9 Anemia, unspecified
CPT/HCPCS: 50002; 60001; 70002; 80102; 80212; 80830; 82129; 82224; 83292; 83419; 84038; 84044; 85241; 85787; 90004; 90047; 90065; 90074; 90100; 90131; 90133; 90309; 90470; 91583; 92720; 94001; 94060; 95029; 95030; 95059; 95150